=== PATIENT | female | born 1975 | race Caucasian/White ===

== ENCOUNTER 2017-06-03 13:59 | Emergency (ER) | payer SELFPAY ==
[2017-06-03 14:05] VITALS: BP 138/75
[2017-06-03] MEDS ORDERED: HYDROcodone/APAP 5/325MG 1 TAB TABLET PO ONE (14:30)
[2017-06-03] MEDS ORDERED: HYDR-971 PO (14:40)
[2017-06-03] MEDS ORDERED: CLIN300C8 PO (14:40)
--- NOTE | 2017-06-03 14:40 | PHYS DOC ---
Past History Past Medical History: Diabetes, Hypotension Smoking: Non-smoker Adult General Chief Complaint Chief Complaint: DENTAL PROBLEM HPI HPI 41-year-old female patient complaining of problem with her teeth intermittently and states since last night she had pain in the area of protein throat as a sharp pain with radiation to her ear. She rated her pain 7/10. Patient denies fever and chills, nausea and vomiting, problems swallowing. Patient state she has appointment with her dentist in 3 days and recently got dental insurance. Review of Systems Review of Systems Constitutional: Denies fever or chills [] Eyes: Denies change in visual acuity, redness, or eye pain [] HENT: Denies nasal congestion or sore throat , reports dental pain[] Respiratory: Denies cough or shortness of breath [] Cardiovascular: No additional information not addressed in HPI [] GI: Denies abdominal pain, nausea, vomiting, bloody stools or diarrhea [] : Denies dysuria or hematuria [] Musculoskeletal: Denies back pain or joint pain [] Integument: Denies rash or skin lesions [] Neurologic: Denies headache, focal weakness or sensory changes [] Endocrine: Denies polyuria or polydipsia [] All other systems were reviewed and found to be within normal limits, except as documented in this note. Current Medications Current Medications Current Medications Medications (Trade) Dose Ordered Sig/Rory Start Time Stop Time Status Last Admin Dose Admin Acetaminophen/ Hydrocodone Bitart (Lortab 5/325) 1 tab 1X ONCE 06/03/17 14:30 06/03/17 14:32 DC Allergies Allergies Allergies Coded Allergies Type Severity Reaction Last Updated Verified Penicillins Allergy Unknown 06/03/17 Yes trandolapril Allergy Unknown 06/03/17 Yes verapamil Allergy Unknown 06/03/17 Yes Physical Exam Physical Exam Constitutional: Well developed, well nourished, modera distress, non-toxic appearance. [] HENT: Normocephalic, atraumatic, bilateral external ears normal, oropharynx moist, no oral exudates, nose normal, poor dental hygiene with extensive gingivitis, dental cavity in the right molar # 1 with tenderness and abscess [] Eyes: PERRLA, EOMI, conjunctiva normal, no discharge. [] Neck: Normal range of motion, no tenderness, supple, no stridor. [] Cardiovascular:Heart rate regular rhythm, no murmur [] Lungs & Thorax: Bilateral breath sounds clear to auscultation [] Neurologic: Alert and oriented X 3 Psychologic: Affect normal, judgement normal, mood normal. [] EKG EKG [] Radiology/Procedures Radiology/Procedures [] Course & Med Decision Making Course & Med Decision Making discharge: I've spoken with the patient and/or caregivers. I've explained the patient's condition, diagnosis and treatment plan based on information available to me at this time. I've answered the patient's and/or caregivers questions and addressed any concerns. The patient and/or caregivers have a good understanding the patient's diagnosis, condition and treatment plan as can be expected at this point. Vital signs have been stabilized. The patient's condition is stable for discharge from the emergency department. The patient will pursue further outpatient evaluation with her primary care provider or other designated consulting physician as outlined in the discharge instructions. Patient and/or caregivers are agreeable to this plan of care and follow-up instructions have been explained in detail. The patient and/or caregivers have received these instructions in written format and expressed understanding of these discharge instructions. The patient and her caregivers are aware that if any significant change in condition or worsening of symptoms should prompt him to immediately return to this of the closest emergency department. If an emergent department is not readily available I would encourage him to call 911. Emma Disclaimer [place] Disclaimer This electronic medical record was generated, in whole or in part, using a voice recognition dictation system. Departure Departure: Impression: Primary Impression: Dental abscess Additional Impression: Gingivitis Disposition: HOME, SELF-CARE (At 1438) Condition: IMPROVED Referrals: RAMIRO LICEA MD (PCP) Patient Instructions: Dental Abscess, Gingivitis Additional Instructions: Follow-up with your dentist as scheduled in 3 days Scripts Hydrocodone Bit/Acetaminophen (NORCO 5-325 TABLET) 1 Each Tablet 1 TAB PO PRN Q6HRS Y for PAIN, #20 TAB 0 Refills Prov: QUINN MITCHELL MD 06/03/17 Clindamycin Hcl (CLINDAMYCIN HCL) 300 Mg Capsule 1 CAP PO TID, #30 CAP Prov: QUINN MITCHELL MD 06/03/17 Problem Qualifiers QUINN MITCHELL MD Jun 03, 2017 14:40
== END 2017-06-03 14:51 | disposition home or self-care (01) ==
LOC: ER 13:59
DX: K04.7 Periapical abscess without sinus (principal); K05.10 Chronic gingivitis, plaque induced; E11.9 Type 2 diabetes mellitus without complications; Z88.0 Allergy status to penicillin; Z88.8 Allergy status to other drugs, medicaments and biological substances
CPT/HCPCS: 99283

== ENCOUNTER 2020-08-18 12:26 | Emergency (ER) | payer MEDICAID ==
[~2020-08-18] VITALS: Ht 152.4 cm; Wt 98.2 kg
[~2020-08-18 12:26] MED LIST: CLIN300C9 PO; HYDR-3165 PO
--- NOTE | 2020-08-18 13:01 | PHYS DOC ---
Past History Past Medical History: Diabetes, Hypertension, Seizure Past Surgical History: Tubal ligation, Other Additional Past Surgical Histo: bladder surgery Smoking: Non-smoker Alcohol Use: None Drug Use: None Adult General Chief Complaint Chief Complaint: NECK INJURY HPI HPI Patient is a 44-year-old female who presents with a chief complaint of neck and back pain after fall. States she was cleaning her restroom, and standing on the edge of the bathtub cleaning the top of her shower, slipped and fell backwards onto the tile floor. States she did hit her neck and head about at the same time but did not go unconscious. Denies any changes in vision, chest pain, shortness of breath, abdominal pain, nausea, vomiting, dysuria, hematuria or blood in the stool. Denies any numbness/weakness/tingling. States she is able to walk without issue. States that she does have pain at the base of her skull and in her lower neck and upper back, 7 out of 10, dull and achy in nature with no radiation. Review of Systems Review of Systems Review of systems otherwise unremarkable except noted in HPI Allergies Allergies Allergies Coded Allergies Type Severity Reaction Last Updated Verified Penicillins Allergy Unknown 06/03/17 Yes trandolapril Allergy Unknown 06/03/17 Yes verapamil Allergy Unknown 06/03/17 Yes Physical Exam Physical Exam Constitutional: Well developed, well nourished, no acute distress, non-toxic appearance. [] HENT: Normocephalic, atraumatic, bilateral external ears normal, no hemotympanu ms, oropharynx moist, no oral exudates, nose normal. [] Eyes: PERRLA, EOMI, conjunctiva normal, no discharge. [] Neck: C-collar in place. Pain along the midline of the cervical spine as well as paraspinal cervical muscle tenderness. Pain along the midline of upper thoracic spine and paraspinal muscle tenderness as well. No obvious bruising, deformities or step-offs. Cardiovascular:Heart rate regular rhythm, no murmur [] Lungs & Thorax: Bilateral breath sounds clear to auscultation [] Abdomen: Bowel sounds normal, soft, no tenderness, no masses, no pulsatile masses. [] Skin: Warm, dry, no erythema, no rash. [] Back: No tenderness, no CVA tenderness. [] Extremities: No tenderness, no cyanosis, no clubbing, ROM intact, no edema. [] Neurologic: Alert and oriented X 3, normal motor function, normal sensory function, no focal deficits noted. [] Psychologic: Affect normal, judgement normal, mood normal. [] Current Patient Data Vital Signs Vital Signs Date Time Temp Pulse Resp B/P (MAP) Pulse Ox O2 Delivery O2 Flow Rate FiO2 08/18/20 12:35 97.9 110 26 192/104 (133) 97 Room Air EKG EKG [] Radiology/Procedures Radiology/Procedures []INDICATION: Fall. COMPARISON: None recently. TECHNIQUE: Axial CT imaging through the head, cervical spine and thoracic spine without the use of intravenous contrast. Sagittal and coronal reformats were obtained. One or more of the following individualized dose reduction techniques were utilized for this examination: 1. Automated exposure control 2. Adjustment of the mA and/or kV according to patient size 3. Use of iterative reconstruction technique. FINDINGS: CT head: No acute intracranial hemorrhage. Small focus of hyperdensity along the right cerebellar hemisphere most typical of chronic mineralization involving the tentorial leaflet. Scott-white matter differentiation is maintained. No mass effect, midline shift or hydrocephalus. No depressed calvarial fracture. Mild paranasal sinus mucosal thickening without layering fluid. Normally aerated mastoid air cells and middle ears. CT cervical spine: No acute fracture or traumatic malalignment. No soft tissue sequela of trauma seen throughout the neck. Age accelerated multilevel spondylosis with discogenic arthrosis most pronounced at C6-C7. Multilevel disc osteophyte complex formation and uncovertebral joint hypertrophy. No advanced facet arthrosis. Central canal stenosis at several levels which is likely at least moderate such as at C4-C5. Unremarkable thyroid. Scattered reactive appearing cervical chain lymph nodes. No apical pneumothorax. CT thoracic spine: No acute fracture or traumatic malalignment. Scattered degenerative changes. No severe osseous central canal or neural foraminal stenosis. No prevertebral or dorsal paraspinous hematoma. Calcific coronary artery disease. A few millimetric nodules are identified such as within the right lower lobe not meeting size criteria for dedicated follow-up per Fleischner guidelines. IMPRESSION: CT head: 1. No acute intracranial abnormality by CT. CT cervical spine: 1. No acute fracture or traumatic malalignment. 2. Age-advanced multilevel cervical spondylosis with at least moderate central canal narrowing at a few levels though not fully characterized by technique. CT thoracic spine: 1. No acute fracture or traumatic malalignment. Heart Score C/O Chest Pain: No Risk Factors: Risk Factors: DM, Current or recent (<one month) smoker, HTN, HLP, family history of CAD, obesity. Risk Scores: Risk Factors: DM, Current or recent (<one month) smoker, HTN, HLP, family history of CAD, obesity. Course & Med Decision Making Course & Med Decision Making Patient is a 44-year-old female who presents to the emergency department with head neck and back pain after falling from her toe while cleaning Vital signs notable for hypertension. Physical exam noted above. Patient placed in a c-collar. Given IM fentanyl for pain. Imaging of the head, C-spine and thoracic spine with no acute osseous abnormalities. Took c-collar off patient for reexamination. Patient able to flex and extend the neck as well as abduct/abduct and turn to the left or right. Patient did experience pain and tightness with flexion. Placed c-collar back on patient. Discussed all findings with family. Let them know that even though there is no bony abnormalities she could still have a soft tissue abnormality including ligament/tendon/muscle damage. Advised to keep c-collar on and advised on pain management at home. Advised to call primary care physician first thing today or tomorrow to discuss her ED visit, and set up an outpatient MRI. Also gave contact information for [place] orthopedic surgeons to call if their primary care physician and/or MRI indicated for continued follow-up and treatment. Family grateful, verbalized understanding and agreed with plan of discharge. [] Dragon Disclaimer Dragon Disclaimer This electronic medical record was generated, in whole or in part, using a voice recognition dictation system. Departure Departure: Impression: Primary Impression: Neck pain, acute Disposition: HOME / SELF CARE / HOMELESS Condition: IMPROVED Referrals: PCP,NO (PCP) PHOEBE LYNCH MD Patient Instructions: Soft Tissue Injury of the Neck Additional Instructions: Please read all of the attached information very carefully to understand diagnosis. Please begin a Tylenol, ibuprofen pain regimen as discussed. As discussed please keep your c-collar on at all times to help with pain management and to avoid further injury. Please use your pain medication as prescribed and do not take more than 3000 mg of Tylenol daily including within your prescription medicine. Please call your primary care physician as soon as you can to discuss your ED visit and have them set up an outpatient MRI as soon as possible as discussed. You can also call the [facility] orth[facility]ists at [phone] if indicated by your primary care physician and/or MRI if you do not already have an orthopedic surgeon. Please come back to the emergency department immediately with new or concerning symptoms as discussed. Scripts Oxycodone HCl/Acetaminophen (Percocet 5-325 mg Tablet) 1 Each Tablet 1 TAB PO Q6HRS PRN for neck pain MDD 2 Tablet(s) for 3 Days, #12 TAB 0 Refills Prov: MERT WOODRUFF MD 08/18/20 MERT WOODRUFF MD August 18, 2020 13:01
--- NOTE | 2020-08-18 13:38 | RAD ---
STUDY: 1. CT head without contrast 2. CT cervical spine without contrast 3. CT thoracic spine without contrast INDICATION: Fall. COMPARISON: None recently. TECHNIQUE: Axial CT imaging through the head, cervical spine and thoracic spine without the use of in travenous contrast. Sagittal and coronal reformats were obtained. One or more of the following individualized dose reduction techniques were utilized for this examinat ion: 1. Automated exposure control 2. Adjustment of the mA and/or kV according to patient size 3. Use of iterative reconstruction technique. FINDINGS: CT head: No acute intracranial hemorrhage. Small focus of hyperdensity along the right cerebellar hemisphere m ost typical of chronic mineralization involving the tentorial leaflet. Scott-white matter differentiat ion is maintained. No mass effect, midline shift or hydrocephalus. No depressed calvarial fracture. Mild paranasal sinus mucosal thickening without layering fluid. Norm ally aerated mastoid air cells and middle ears. CT cervical spine: No acute fracture or traumatic malalignment. No soft tissue sequela of trauma seen throughout the nec k. Age accelerated multilevel spondylosis with discogenic arthrosis most pronounced at C6-C7. Multilevel disc osteophyte complex formation and uncovertebral joint hypertrophy. No advanced facet arthrosis. Central canal stenosis at several levels which is likely at least moderate such as at C4-C5. Unremarkable thyroid. Scattered reactive appearing cervical chain lymph nodes. No apical pneumothorax . CT thoracic spine: No acute fracture or traumatic malalignment. Scattered degenerative changes. No severe osseous centra l canal or neural foraminal stenosis. No prevertebral or dorsal paraspinous hematoma. Calcific coronary artery disease. A few millimetric n odules are identified such as within the right lower lobe not meeting size criteria for dedicated fol low-up per Fleischner guidelines. IMPRESSION: CT head: 1. No acute intracranial abnormality by CT. CT cervical spine: 1. No acute fracture or traumatic malalignment. 2. Age-advanced multilevel cervical spondylosis with at least moderate central canal narrowing at a few levels though not fully characterized by technique. CT thoracic spine: 1. No acute fracture or traumatic malalignment. Electronically signed by: MADAI SMITH MD (08/18/2020 1:36 PM) [id number]
[2020-08-18 14:11] VITALS: BP 172/88
[2020-08-18] MEDS ORDERED: OXYC-325 PO (14:26)
[2020-08-18] MEDS ORDERED: oxyCODONE/APAP 5/325 1 TAB TABLET PO ONE (14:30)
[2020-08-18] MEDS ORDERED: IBUPROFEN 600 MG TABLET. PO ONE (14:30)
== END 2020-08-18 14:52 | disposition home or self-care (01) ==
LOC: ER 12:26
DX: M54.2 Cervicalgia (principal); E11.9 Type 2 diabetes mellitus without complications; I10 Essential (primary) hypertension; Z88.0 Allergy status to penicillin; Z98.51 Tubal ligation status; Z88.6 Allergy status to analgesic agent
CPT/HCPCS: 70450; 72125; 72128; 96372; 99285; J3010

== ENCOUNTER 2021-03-02 21:28 | Emergency (ER) | payer MEDICAID ==
[~2021-03-02] VITALS: Ht 154.9 cm; Wt 97.3 kg
[~2021-03-02 21:28] MED LIST changes: +CLIN-95 PO; -CLIN300C9 PO; +OXYC-325 PO
--- NOTE | 2021-03-02 21:31 | PHYS DOC ---
Past History Past Medical History: Diabetes, Hypertension, Seizure Past Surgical History: Tubal ligation, Other Additional Past Surgical Histo: bladder surgery Smoking: Non-smoker Alcohol Use: None Drug Use: None General Adult HPI: HPI: "I drop on most commercial food cans on my foot.... It really hurts,,, the edge of the can .. Landed's sideways onto my foot,,," "''' it is starting to turn purple.." Patient is a 45 year old female who presents with above hx and complaints of Lt. foot injury. Injury occurred to the bridge of the foot. There is some discoloration and imprint of can edge. Patient reports marked pain with weight bearing . No upper leg tenderness. No ankle tenderness. Does have positive foot squeeze. Distal neurovascular appears to be intact in toes. 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 Pt. follows with Dr. Licea. . No recent travel. No specific ill contacts. Patient has past medical history of diabetes, hypertension, seizure disorder, arthritis, peripheral neuropathy, chronic pain. Review of Systems: Review of Systems: Constitutional: Denies fever or chills Eyes: Denies change in visual acuity HENT: Denies nasal congestion or sore throat Respiratory: Denies cough or shortness of breath Cardiovascular: Denies chest pain or edema GI: Denies abdominal pain, nausea, vomiting, bloody stools or diarrhea : Denies dysuria Musculoskeletal: Complains of left foot injury Integument: Denies rash Neurologic: Denies headache, focal weakness or sensory changes Endocrine: Denies polyuria or polydipsia Lymphatic: Denies swollen glands Psychiatric: Denies depression or anxiety Family History: Family History: Noncontributory to presentation Current Medications: Current Meds: See nursing for home meds Allergies: Allergies: Allergies Coded Allergies Type Severity Reaction Last Updated Verified Penicillins Allergy Unknown 06/03/17 Yes trandolapril Allergy Unknown 06/03/17 Yes verapamil Allergy Unknown 06/03/17 Yes Physical Exam: PE: Constitutional: moderate acute distress, non-toxic appearance. [] HENT: Normocephalic, atraumatic, bilateral external ears normal, oropharynx moist, no oral exudates, nose normal. [] Eyes: PERRLA, EOMI, conjunctiva normal, no discharge. [] Neck: Normal range of motion, no tenderness, supple, no stridor. [] Cardiovascular:Heart rate regular rhythm, no murmur [] PMI slightly to the left Lungs & Thorax: Bilateral breath sounds to apex on auscultation [] Abdomen: Bowel sounds normal, soft, no tenderness, no masses, no pulsatile masses. [Obese. Old surgery scars. Skin: Warm, dry, no erythema, no rash. [] Back: No tenderness, no CVA tenderness. [] Extremities: Left foot tenderness, no cyanosis, no clubbing, ROM intact but painful, left foot edema. [] Neurologic: Alert and oriented X 3, normal motor function, normal sensory function, no focal deficits noted. [] Psychologic: Affect anxious, judgement normal, mood normal. [] EKG: EKG: [] Radiology/Procedures: Radiology/Procedures: [][address] [id number] IMAGING REPORT Signed PATIENT: GABBY ROBERTS ACCOUNT: [id number] : 1975 LOCATION: ER AGE: 45 SEX: F EXAM STATUS: REG ER ORD. PHYSICIAN: TERI CANALES MD REASON: dropped commerical food can on foot PROCEDURE: FOOT LEFT 3V Exam: Left foot 3 views INDICATION: Trauma to left foot TECHNIQUE: Frontal, lateral and oblique views of the left foot Comparisons: None FINDINGS: Bone mineralization is normal. No acute or healed fractures. Soft tissues are unremarkable. Joint spaces are well-maintained. IMPRESSION: No acute osseous abnormality. Electronically signed by: Kalli Cesar MD (03/02/2021 11:00 PM) [facility] DICTATED AND SIGNED BY: KALLI CESAR MD DATE: 03/02/21 [id number] CC: TERI CANALES MD; RAMIRO LICEA MD ~MTH0 0 Heart Score: C/O Chest Pain: N/A Risk Factors: Risk Factors: DM, Current or recent (<one month) smoker, HTN, HLP, family history of CAD, obesity. Risk Scores: Score 0 - 3: 2.5% MACE over next 6 weeks - Discharge Home Score 4 - 6: 20.3% MACE over next 6 weeks - Admit for Clinical Observation Score 7 - 10: 72.7% MACE over next 6 weeks - Early Invasive Strategies Course & Med Decision Making: Course & Med Decision Making Pertinent Labs and Imaging studies reviewed. (See chart for details) Rest, ice packs as needed, elevation, wear Ronnie wrap, or stiff shoe. Follow-up primary care. Take Tylenol ibuprofen for pain. Follow-up primary care. [] Dragon Disclaimer: Dragjim Disclaimer: This electronic medical record was generated, in whole or in part, using a voice recognition dictation system. Departure Departure: Referrals: RAMIRO LICEA MD (PCP) Emma Disclaimer This chart was dictated in whole or in part using Voice Recognition software in a busy, high-work load, and often noisy Emergency Department environment. It may contain unintended and wholly unrecognized errors or omissions. TREI CANALES MD Mar 02, 2021 21:31
[2021-03-02] MEDS ORDERED: oxyCODONE/APAP 5/325 1 TAB TABLET PO ONE (21:45)
[2021-03-02 21:51] VITALS: BP 162/81
--- NOTE | 2021-03-02 23:02 | RAD ---
Exam: Left foot 3 views INDICATION: Trauma to left foot TECHNIQUE: Frontal, lateral and oblique views of the left foot Comparisons: None FINDINGS: Bone mineralization is normal. No acute or healed fractures. Soft tissues are unremarkable. Joint spa bro[place] are well-maintained. IMPRESSION: No acute osseous abnormality. Electronically signed by: Kalli Hagan MD (03/02/2021 11:00 PM) [facility]IR
== END 2021-03-02 22:50 | disposition home or self-care (01) ==
LOC: ER 21:28
DX: S99.922A Unspecified injury of left foot, initial encounter (principal); E11.9 Type 2 diabetes mellitus without complications; I10 Essential (primary) hypertension; Z88.0 Allergy status to penicillin; Z88.8 Allergy status to other drugs, medicaments and biological substances; W20.8XXA Other cause of strike by thrown, projected or falling object, initial encounter; Y93.89 Activity, other specified; Y92.89 Other specified places as the place of occurrence of the external cause; Y99.8 Other external cause status
CPT/HCPCS: 73630; 99283